=== PATIENT | female | born 2000 | race Caucasian/White ===

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

== ENCOUNTER 2018-02-09 12:56 | Observation (INO) | payer OTHER ==
[2018-02-09] MEDS ORDERED: IV RINGERS,LACTATED 1000ML 1,000 ML IV (13:32)
[2018-02-09 13:49] LABS: BILIRUBIN,URINE NEGATIVE (NEG); CLARITY,URINE CLEAR; COLOR,URINE YELLOW; GLUCOSE,URINE NEGATIVE (NEG); NITRITE,URINE NEGATIVE (NEG); PH,URINE 7.5; PROTEIN,URINE NEGATIVE (NEG-TRACE)
[2018-02-09 13:55] LABS: AMNIO PT NEGATIVE; NEG OBC AMNIO NEG; POS OBC AMNIO POS
[2018-02-09 13:56] LABS: AMPHETAMINE/METHAMPHETAMINE NEG (NEG); BARBITURATES NEG (NEG); BENZODIAZEPINES NEG (NEG); CANNABINOIDS NEG (NEG); COCAINE NEG (NEG); ETHANOL, URINE NEG (NEG); METHADONE NEG (NEG); OPIATES NEG (NEG); PHENCYCLIDINE NEG (NEG)
[2018-02-09 14:05] LABS: BACTERIA,URINE 0 /HPF (0-FEW); RBC,URINE 0 /HPF (0-2); SQUAMOUS EPITHELIAL CELL,UR FEW /LPF
== END 2018-02-09 18:40 | disposition home or self-care (01) ==
LOC: 3 SO LND 12:56
DX: O42.913 Preterm premature rupture of membranes, unspecified as to length of time between rupture and onset of labor, third trimester (principal); Z3A.30 30 weeks gestation of pregnancy; Z79.899 Other long term (current) drug therapy
CPT/HCPCS: 36415; 76805; 80307; 81001; 84112; G0378; G0379

== ENCOUNTER 2018-03-29 12:29 | Observation (INO) | payer OTHER ==
[2017-11-04 16:55] VITALS: BP 128/77
[~2018-03-29 12:29] MED LIST: AZIT250T6 PO; CEPH500T PO; METR70GE14 VG; MICO1KIT61 VG; NITR100C62 PO; ONDA4TAB10 SL; PROC10TA57 PO
[2018-03-29] MEDS ORDERED: MAG HYDROX/ALUMINUM HYD/SIMETH 30 ML ORAL.SUSP PO PRN (13:15)
[2018-03-29] MEDS ORDERED: ONDANSETRON PF 4 MG/2 ML VIAL. IV PRN (13:15)
[2018-03-29] MEDS ORDERED: ACETAMINOPHEN 325 MG TABLET. PO PRN (13:15)
[2018-03-29 13:26] LABS: BILIRUBIN,URINE NEGATIVE (NEG); CLARITY,URINE CLEAR; COLOR,URINE YELLOW; NITRITE,URINE NEGATIVE (NEG); PROTEIN,URINE NEGATIVE (NEG-TRACE)
[2018-03-29] MEDS ORDERED: IV RINGERS,LACTATED 1000ML 1,000 ML IV SCH (13:30)
[2018-03-29 13:33] LABS: BARBITURATES NEG (NEG); BENZODIAZEPINES NEG (NEG); CANNABINOIDS NEG (NEG); COCAINE NEG (NEG); METHADONE NEG (NEG); OPIATES NEG (NEG); PHENCYCLIDINE NEG (NEG)
[2018-03-29 13:34] LABS: AMPHETAMINE/METHAMPHETAMINE NEG (NEG)
[2018-03-29 13:55] LABS: BACTERIA,URINE 0 /HPF (0-FEW); RBC,URINE 0 /HPF (0-2); SQUAMOUS EPITHELIAL CELL,UR FEW /LPF
[2018-03-29 15:09] LABS: BASO % 1 % (0-3); EOS # 0.2 x10^3/uL (0.0-0.7); EOS % 3 % (0-3); HEMATOCRIT 29.6 % (36.0-47.0); HEMOGLOBIN 10.2 g/dL (12.0-15.5); LYMPH # 1.9 x10^3/uL (1.0-4.8); LYMPH % 21 % (24-48); MEAN CORPUSCULAR HEMOGLOBIN 30 pg (25-35); MEAN CORPUSCULAR HGB CONC 35 g/dL (31-37); MEAN CORPUSCULAR VOLUME 86 fL (79-100); MONO # 0.8 x10^3/uL (0.0-1.1); MONO % 9 % (0-9); NEUT # 6.1 x10^3uL (1.8-7.7); NEUT % 67 % (31-73); PLATELET COUNT 289 x10^3/uL (140-400); RED BLOOD COUNT 3.45 x10^6/uL (3.50-5.40); RED CELL DISTRIBUTION WIDTH 12.8 % (11.5-14.5)
== END 2018-03-29 15:03 | disposition home or self-care (01) ==
LOC: 3 SO LND 12:29
PROVIDERS: ADMIT Obstetrics & Gynecology; ATTEND Obstetrics & Gynecology
DX: O26.893 Other specified pregnancy related conditions, third trimester (principal); R10.2 Pelvic and perineal pain; Z3A.36 36 weeks gestation of pregnancy; Z79.899 Other long term (current) drug therapy
CPT/HCPCS: 36415; 80307; 81001; 85025; 86592; 86762; 86850; 86900; 86901; 87086; 87340; 87491; 87591; 87653; G0378; G0379; G0479

== ENCOUNTER 2018-05-20 18:54 | Emergency (ER) | payer OTHER ==
[~2018-05-20] VITALS: Ht 177.8 cm; Wt 59.0 kg
[2018-05-20 20:28] LABS: BILIRUBIN,URINE SMALL (NEG); CLARITY,URINE CLEAR; COLOR,URINE YELLOW; NITRITE,URINE NEGATIVE (NEG); PH,URINE 5.5; PROTEIN,URINE 30 mg/dL (NEG-TRACE)
[2018-05-20 20:34] LABS: BACTERIA,URINE MODERATE /HPF (0-FEW); RBC,URINE 20-40 /HPF (0-2); SQUAMOUS EPITHELIAL CELL,UR FEW /LPF; WBC,URINE TNTC /HPF (0-4)
--- NOTE | 2018-05-20 22:00 | PHYS DOC ---
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 No fevers chills , abdominal pain, cramping, flank pain, urinary frequency urgency dysuria. Patient has not been evaluated since lease from hospital. No other acute symptoms or complaints. States she has not had sexual intercourse since giving . No medications or therapy sticking prior to ED arrival. [] Review of Systems Review of Systems Review symptoms as per history of present illness All other systems were reviewed and found to be within normal limits, except as documented in this note. Current Medications Current Medications Current Medications Medications (Trade) Dose Ordered Sig/Sarah Start Time Stop Time Status Last Admin Dose Admin Azithromycin (Zithromax) 1,000 mg 1X ONCE 05/20/18 22:30 05/20/18 22:31 Ceftriaxone Sodium 50 ml @ 100 mls/hr 1X ONCE 05/20/18 22:30 05/20/18 22:59 Allergies Allergies Allergies Coded Allergies Type Severity Reaction Last Updated Verified adhesive tape Allergy Intermediate 10/25/17 Yes Physical Exam Physical Exam Constitutional: Well developed, well nourished, no acute distress, non-toxic appearance. [] HENT: Normocephalic, atraumatic, bilateral external ears normal, oropharynx moist, no oral exudates, nose normal. [] Eyes: PERRLA, EOMI, conjunctiva normal. [] Neck: Normal range of motion, no tenderness. [] Cardiovascular:Heart rate regular rhythm, no murmur [] Lungs & Thorax: Bilateral breath sounds clear to auscultation [] Abdomen: Bowel sounds normal, soft, no tenderness. [] Pelvic: Purulent vaginal discharge, with inflamed, cervix minimal bleeding.. [] Back: No tenderness. [] Extremities: No tenderness. [] Neurologic: Alert and oriented X 3, normal motor function, normal sensory function, no focal deficits noted. [] Psychologic: Affect normal, judgement normal, mood normal. [] Current Patient Data Vital Signs Vital Signs Date Time Temp Pulse Resp B/P (MAP) Pulse Ox O2 Delivery O2 Flow Rate FiO2 05/20/18 19:18 97.9 71 18 135/95 (108) 98 Room Air 97.9 Lab Values Laboratory Tests Test 05/20/18 20:10 05/20/18 20:13 Urine Collection Type Unknown Urine Color Yellow Urine Clarity Clear Urine pH 5.5 Urine Specific [place] >=1.030 Urine Protein 30 mg/dL (NEG-TRACE) Urine Glucose (UA) Negative mg/dL (NEG) Urine Ketones (Stick) Trace mg/dL (NEG) Urine Blood Moderate (NEG) Urine Nitrite Negative (NEG) Urine Bilirubin Small (NEG) Urine Urobilinogen Dipstick 1.0 mg/dL (0.2 mg/dL) Urine Leukocyte Esterase Large (NEG) Urine RBC 20-40 /HPF (0-2) Urine WBC Tntc /HPF (0-4) Urine Squamous Epithelial Cells Few /LPF Urine Bacteria Moderate /HPF (0-FEW) POC Urine HCG, Qualitative Hcg negative (Negative) Microbiology 05/20/18 Wet Prep - Final, Complete EKG EKG [] Radiology/Procedures Radiology/Procedures Plevic Ultrasound: Pending] Course & Med Decision Making Course & Med Decision Making Pertinent Labs and Imaging studies reviewed. (See chart for details) [Pelvic exam concern for gonorrhea. Rocephin, Zithromax given. Cultures obtained. Recommend abstain from sexual intercourse and having partner tested pending further results due to high risk of re-exposure. Recommend follow-up with BUSINESS ANALYSIS ANALYST in the next 3-5 days..] Dragon Disclaimer Dragon Disclaimer This electronic medical record was generated, in whole or in part, using a voice recognition dictation system. Departure Departure Impression: Primary Impression: Vaginal discharge Disposition: HOME, SELF-CARE Condition: GOOD Referrals: UNKNOWN PCP NAME (PCP) Patient Instructions: Pelvic Inflammatory Disease, [id number] Additional Instructions: Please abstain from all sexual intercourse until both you and your partner have been checked for presence of STDs. Follow-up with your BUSINESS ANALYSIS ANALYST in the next 3-5 days for reevaluation. Return to the ED if new or worsening symptoms. JULISSA GAN DO May 20, 2018 22:00
[2018-05-20] MEDS ORDERED: cefTRIAXone IM 1 GM VIAL IM ONE ×2 (22:24→23:00)
[2018-05-20 22:30] VITALS: BP 130/74
[2018-05-20] MEDS ORDERED: AZITHROMYCIN 250 MG TABLET. PO ONE (22:30)
--- NOTE | 2018-05-20 22:38 | RAD ---
Pelvic ultrasound History: bleeding. Comparison: None. Technique: Transabdominal ultrasound was performed to evaluate the uterine fundus. Endovaginal imaging was performed to evaluate optimally the endometrial canal and lower uterine segment. TRANSABDOMINAL IMAGING Findings: The uterus measures 8.2 cm in length. Endometrium is not well seen, but no gross endometrial thickening is identified. Ovaries are not well seen with transabdominal imaging. ENDOVAGINAL IMAGING Findings: The uterus is without evidence of focal mass. The endometrium measures 4 mm. Right ovary measures 2.5 x 1.5 x 1.3 cm and demonstrates small follicles. The left ovary measures 2.9 x 1.3 x 1.3 cm and demonstrates small follicles. No adnexal masses are identified. No significant free fluid is identified within the pelvis. Both ovaries demonstrate normal vascular flow upon Doppler interrogation and are without evidence of torsion. Impression: 1. Endometrial thickness is within normal limits at 4 mm. No evidence of retained products of conception. 2. Unremarkable pelvic ultrasound. Electronically signed by: Bola Govea MD (05/20/2018 10:35 PM) [facility]
[2018-05-22 15:35] LABS: GC PROBE Negative (Negative)
== END 2018-05-20 23:16 | disposition home or self-care (01) ==
LOC: ER 18:54
DX: N89.8 Other specified noninflammatory disorders of vagina (principal); Z91.048 Other nonmedicinal substance allergy status
CPT/HCPCS: 76830; 76856; 81001; 81025; 87086; 87491; 87591; 96372; 99285; J0696; Q0111; Q0144